=== PATIENT | female | born 1960 | race Caucasian/White ===

== ENCOUNTER 2018-03-24 13:22 | Inpatient (IN) ==
[2018-03-28] MEDS ORDERED: Insulin Detemir Inj 1,000 UNIT/10 ML Vial SQ ONE (22:22)
[2018-03-29] MEDS ORDERED: guaiFENesin 600 MG ER Tablet PO ONE (07:44)
[2018-03-29] MEDS ORDERED: Lisinopril 5 MG Tablet ONE (07:45)
[2018-03-29] MEDS ORDERED: Insulin NovoLOG Aspart Correctional Sugar Inj SQ SCH (08:00)
[2018-03-29] MEDS ORDERED: Aluminum/Magnesium/Simethacone Susp 30 ML UDC PO PRN (08:07)
[2018-03-29] MEDS ORDERED: Acetaminophen 325 MG Tablet PO PRN (08:07)
[2018-03-29] MEDS ORDERED: Dextrose 50% in Water 50 ML Vial IV.PUSH PRN (08:25)
[2018-03-29] MEDS: Lisinopril 5 MG Tablet PO SCH (09:58)
[2018-03-29] MEDS: guaiFENesin 600 MG ER Tablet PO SCH ×2 (09:58→21:26)
[2018-03-29] MEDS: Tiotropium Bromide 18 MCG/ACT Inhaler INH SCH (10:16)
--- NOTE | 2018-03-29 13:07 | P.PNPSY ---
Subjective Remarks: Patient was seen and case discussed with nursing. Patient had a visit with her friend. She is social on the unit. She is continuing to mend the situation with her and spoke to him on the phone. She describes her mood today is "okay." She denies suicidal or homicidal ideations. She is compliant with her medications. Has not had any outbursts Mental Status Examination Appearance: Disheveled Consciousness: Alert Orientation: x4 Motor Activity: Normal gait Speech: Unremarkable Language: Adequate Fund of Knowledge: Adequate Attention and Concentration: Adequate Memory: Unremarkable Mood: Appropriate Affect: Anxious Thought Process & Associations: Intact Thought Content: Appropriate Hallucination Type: None Delusion Type: None Suicidal Ideation: No Suicidal Plan: No Suicidal Intention: No Homicidal Ideation: No Homicidal Plan: No Homicidal Intention: No Insight: Poor Judgment: Poor Assessment and Plan - Assessment (1) Adjustment disorder with depressed mood Code(s): F43.21 - Adjustment disorder with depressed mood Status: Acute - Plan Plan: Estimated LOS: [] days Continue current treatment plan Justification for Continued Inpatient Stay: Patient would decompensate in a less restrictive setting
--- NOTE | 2018-03-29 13:41 | P.PN ---
Subjective Interval history: Follow-up visit for cough, COPD, DM, and HTN. Spoke with nurse who reports that patient has been coughing, also noted BS in the 200's. Patient is seen and examined in her room, she is noted to cough, does not sound productive. Reports cough is nonproductive. She denies any SOB, fevers, chills, N/V/D. She does report that she has been urinating plenty, no dysuria. She complains of vaginal itching, denies any vaginal discharge, lower abdominal pain, or foul odor. Physical Exam Vital signs: Vital Signs 03/29/18 05:50 Temperature 36.6 C Pulse Rate 83 Respiratory Rate 16 Blood Pressure 107/58 L Pulse Oximetry 95 Intake & Output 03/28/18 03/29/18 03/29/18 18:59 06:59 18:59 Weight 83.6 kg Narrative: GENERAL: This is a well-nourished, well-developed patient, in no apparent distress. SKIN: Cool and dry. Multiple scratch espinoza bilateral upper extremity and lower extremity. HEAD: Normocephalic. EYES: Pupils equal round and reactive. No scleral icterus. No injection or drainage. ENT: Nose without bleeding. Airway patent. NECK: Trachea midline. CARDIOVASCULAR: Regular rate and rhythm without murmurs, gallops, or rubs. RESPIRATORY: Expiratory wheeze. Moderate air entry. GASTROINTESTINAL: Abdomen soft, non-tender, nondistended. Bowel sounds active 4. MUSCULOSKELETAL: Extremities without clubbing, cyanosis, or edema. NEUROLOGICAL: Awake and alert. Oriented to place, person motor and sensory grossly within normal limits. Normal speech. Results - Labs CBC & Chem 7: 03/24/18 20:18 03/29/18 09:25 Labs: Laboratory Results - last 24 hr 03/24/18 03/26/18 03/29/18 20:18 06:39 06:07 Sodium 140 Potassium 3.5 Chloride 101 Carbon Dioxide 25.8 Anion Gap 13 BUN 13 Creatinine 0.67 Estimated GFR 91 POC Glucose 140 H Random Glucose 172 H D Hemoglobin A1c 9.7 H Calcium 9.3 Triglycerides 198 H Cholesterol 171 LDL Cholesterol 83 HDL Cholesterol 48.6 Cholesterol/HDL Ratio 3.51 HCG, Quant 3 03/29/18 03/29/18 09:25 11:15 Sodium Potassium Chloride Carbon Dioxide Anion Gap BUN Creatinine Estimated GFR POC Glucose 265 H Random Glucose 264 H Hemoglobin A1c Calcium Triglycerides Cholesterol LDL Cholesterol HDL Cholesterol Cholesterol/HDL Ratio HCG, Quant Assessment and Plan - Plan Depression, suicidal ideation -Managed by psychiatry questionable Urinary tract infection -UC with mixed gram positive cocci -stopped antibiotic -Encourage p.o. fluid intake - Frequent urination more than likely due to high BS DM type II, long-term insulin use, diabetic neuropathy and nephropathy -A1c 9.7 -Continue home dose insulin 40 units nightly, - BS today in the mid 200's, continue metformin, Accu-Cheks, increase sliding scale to medium dose. -Max bedtime coverage of 7 units, monitor for hypoglycemia. HTN HLD -Continue with home medication lisinopril 2.5 mg, atorvastatin 10 mg -BP stable COPD versus asthma, mild exacerbation History of right lung cancer with resection -Patient states she has also been diagnosed by one doctor with COPD and other doctor with asthma does not need to know whether she has a combination or just one lung disease. -Reports cough, unable to expectorate. continue with albuterol- antitussives with Tessalon Perles. - chest x-ray negative -continue, Symbicort, Singulair and tiotropium -Monitor respiratory status Vaginal pruritus -Likely secondary to candidiasis, patient is a diabetic and predispose. Discussed with patient extensively. -Proper hygiene with nystatin cream. DVT prop, ambulatory Discussed with patient and RN.
[2018-03-29] MEDS: Benzonatate 100 MG Capsule PO PRN ×2 (16:16→23:45)
[2018-03-29] MEDS ORDERED: QUEtiapine 25 MG Tablet PO SCH (21:00)
[2018-03-29] MEDS ORDERED: Montelukast 10 MG Tablet PO SCH (21:00)
[2018-03-29] MEDS ORDERED: Insulin Detemir Inj 1,000 UNIT/10 ML Vial SQ SCH (21:00)
[2018-03-29] MEDS: Budesonide-Formoterol 160/4.5 MCG 6 GM Inhaler INH SCH (21:25)
[2018-03-29] MEDS: Insulin NovoLOG Aspart Correctional Sugar Inj SQ SCH (21:41)
[2018-03-30] MEDS: Lisinopril 5 MG Tablet PO SCH (08:57)
[2018-03-30] MEDS: guaiFENesin 600 MG ER Tablet PO SCH (08:59)
[2018-03-30] MEDS: Tiotropium Bromide 18 MCG/ACT Inhaler INH SCH (09:03)
[2018-03-30] MEDS: Budesonide-Formoterol 160/4.5 MCG 6 GM Inhaler INH SCH (09:32)
[2018-03-30] MEDS: Benzonatate 100 MG Capsule PO PRN (09:48)
[2018-03-30] MEDS: Insulin NovoLOG Aspart Correctional Sugar Inj SQ SCH (11:13)
--- NOTE | 2018-03-30 11:18 | P.PN ---
Subjective Interval history: Follow-up visit for cough, COPD, diabetes and hypertension. Patient is seen and examined in the day room today, observed to have a dry cough, reports coughing pills are not helping and inhaler is also not helping. She denies any fevers, chills, nausea, vomiting, shortness of breath, chest pain, headache, or dizziness. She reports that cream which she has been using has resolved her vaginal itching. Physical Exam Vital signs: Vital Signs 03/29/18 18:00 03/30/18 06:02 Temperature 36.1 C L 36.8 C Pulse Rate 80 84 Respiratory Rate 16 16 Blood Pressure 108/60 109/64 Pulse Oximetry 95 100 Intake & Output 03/29/18 03/30/18 03/30/18 18:59 06:59 18:59 Weight 80.2 kg Narrative: GENERAL: This is a well-nourished, well-developed patient, in no apparent distress. SKIN: Cool and dry. Multiple scratch espinoza bilateral upper extremity and lower extremity. HEAD: Normocephalic. EYES: Pupils equal round and reactive. No scleral icterus. No injection or drainage. ENT: Nose without bleeding. Airway patent. NECK: Trachea midline. CARDIOVASCULAR: Regular rate and rhythm without murmurs, gallops, or rubs. RESPIRATORY: Expiratory wheeze. Moderate air entry. No respiratory distress noted. GASTROINTESTINAL: Abdomen soft, non-tender, nondistended. Bowel sounds active 4. MUSCULOSKELETAL: Extremities without clubbing, cyanosis, or edema. NEUROLOGICAL: Awake and alert. Oriented to place, person motor and sensory grossly within normal limits. Normal speech. Results - Labs CBC & Chem 7: 03/24/18 20:18 03/29/18 09:25 Laboratory Results - last 24 hr 03/29/18 03/29/18 16:03 21:10 POC Glucose 243 H 277 H Assessment and Plan - Plan Depression, suicidal ideation -Managed by psychiatry questionable Urinary tract infection -UC with mixed gram positive cocci -stopped antibiotic -Encourage p.o. fluid intake - Frequent urination more than likely due to high BS DM type II, long-term insulin use, diabetic neuropathy and nephropathy -A1c 9.7 -Continue home dose insulin 40 units nightly, - Continue metformin, Accu-Cheks, increase sliding scale to medium dose. - Max bedtime coverage of 7 units, monitor for hypoglycemia. HTN HLD -Continue with home medication lisinopril 2.5 mg, atorvastatin 10 mg -BP stable COPD versus asthma, mild exacerbation History of right lung cancer with resection -Patient states she has also been diagnosed by one doctor with COPD and other doctor with asthma does not need to know whether she has a combination or just one lung disease. -Reports cough, unable to expectorate. Continue antitussives with Fabiano Donald, will schedule Albuterol nebs and hold inhaler, monitor for improvement. - chest x-ray negative -continue, Symbicort, Singulair and tiotropium -Monitor respiratory status Vaginal pruritus -Likely secondary to candidiasis, patient is a diabetic and predispose. Discussed with patient extensively. -Proper hygiene with nystatin cream, resolved. DVT prop, ambulatory Discussed with patient and RN. If cough has improved most likely will sign off tomorrow.
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
== END 2018-03-30 18:40 | disposition home or self-care (01) ==
LOC: H260 03-25 13:37
PROVIDERS: ADMIT Student in an Organized Health Care Education/Training Program; ATTEND Student in an Organized Health Care Education/Training Program